=== PATIENT | female | born 1960 | race Two or more races ===

== ENCOUNTER 2021-04-06 17:30 | Inpatient (IN) | payer OTHER ==
[~2021-04-06] VITALS: Ht 147.3 cm; Wt 57.3 kg
[2021-04-06] MEDS ORDERED: SODIUM CHLORIDE 0.9% 500 ML IVB ONE (17:45)
[2021-04-06] MEDS ORDERED: PANTOPRAZOLE 40 MG/10 ML VIAL INJ IV ONE (17:45)
[2021-04-06] MEDS ORDERED: ONDANSETRON HCL 4 MG/2 ML VIAL IV ONE (17:45)
[2021-04-06] MEDS ORDERED: MORPHINE SULFATE 4 MG/ML SYR/VIAL IV ONE (17:45)
[2021-04-06 20:03] LABS: Basophils # (auto) 0 10 ^3/uL (0-0.2); Basophils % (auto) 0.3 % (0.0-2.0); Eosinophils # (auto) 0 10 ^3/uL (0-0.8); Eosinophils % (auto) 0.1 % (0.0-7.0); Hematocrit 40.1 % (36.0-46.0); Hemoglobin 13.6 g/dL (12.2-16.2); Lymphocytes # (auto) 0.6 10 ^3/uL (0.4-5.4); Lymphocytes % (auto) 6.2 % (10.0-50.0); Mean Corpuscular Hemoglobin 30.6 pg (28.0-32.0); Mean Corpuscular Volume 89.9 fL (80.0-100.0); Monocytes # (auto) 0.3 10 ^3/uL (0-1.3); Monocytes % (auto) 2.9 % (0.0-12.0); Neutrophils # (auto) 9.2 10 ^3/uL (1.6-8.6); Neutrophils % (auto) 90.5 % (37.0-80.0); Red Blood Cells 4.46 10^6/uL (4.0-5.20); Red Cell Distribution Width 13.1 % (11.8-14.3); White Blood Cell 10.2 10^3/uL (4.4-10.8)
[2021-04-06 20:14] LABS: Calcium 9.5 mg/dL (8.5-10.1); Potassium 3.7 mmol/L (3.5-5.1)
[2021-04-06 20:19] LABS: BUN/Creatinine Ratio 17.1; Bilirubin, Total 0.6 mg/dL (0.2-1.0); Total Protein 7.7 g/dL (6.4-8.2)
[2021-04-06] MEDS ORDERED: SOD CHL 0.45% 1,000 ML IV SCH (22:45)
[2021-04-06] MEDS ORDERED: MORPHINE SULFATE 4 MG/ML SYR/VIAL IV PRN (22:45)
[2021-04-06] MEDS ORDERED: ONDANSETRON HCL 4 MG/2 ML VIAL IV PRN (22:45)
[2021-04-07] MEDS ORDERED: MORPHINE SULFATE INJECTION 2 MG/ML SYRG IV PRN
[2021-04-07] MEDS ORDERED: NITROGLYCERIN 0.4 MG SL TAB SL PRN
[2021-04-07] MEDS: HYDROcodone-ACET 5/325MG TAB PO PRN ×2 (03:13→18:14)
[2021-04-07 06:02] LABS: Potassium 3.6 mmol/L (3.5-5.1)
[2021-04-07 06:12] LABS: Albumin 3.3 g/dL (3.4-5.0); BUN/Creatinine Ratio 17.9; Calcium 8.8 mg/dL (8.5-10.1)
[2021-04-07 06:13] LABS: Bilirubin, Total 0.7 mg/dL (0.2-1.0); Total Protein 6.5 g/dL (6.4-8.2)
[2021-04-07 06:32] LABS: Basophils # (auto) 0.1 10 ^3/uL (0-0.2); Basophils % (auto) 0.6 % (0.0-2.0); Eosinophils # (auto) 0 10 ^3/uL (0-0.8); Eosinophils % (auto) 0.5 % (0.0-7.0); Hematocrit 36.9 % (36.0-46.0); Hemoglobin 12.7 g/dL (12.2-16.2); Lymphocytes # (auto) 1.7 10 ^3/uL (0.4-5.4); Lymphocytes % (auto) 17.9 % (10.0-50.0); Mean Corpuscular Hemoglobin 31.1 pg (28.0-32.0); Mean Corpuscular Hgb Conc. 34.4 g/dL (32.0-36.0); Mean Corpuscular Volume 90.5 fL (80.0-100.0); Monocytes # (auto) 0.5 10 ^3/uL (0-1.3); Monocytes % (auto) 5.1 % (0.0-12.0); Neutrophils # (auto) 7.1 10 ^3/uL (1.6-8.6); Neutrophils % (auto) 75.9 % (37.0-80.0); Red Blood Cells 4.08 10^6/uL (4.0-5.20); Red Cell Distribution Width 13.4 % (11.8-14.3); White Blood Cell 9.4 10^3/uL (4.4-10.8)
[2021-04-07] MEDS: PANTOPRAZOLE 40 MG/10 ML VIAL INJ IV SCH (10:09)
[2021-04-07] MEDS: ACETAMINOPHEN 325 MG TAB PO PRN (10:12)
[2021-04-07] MEDS ORDERED: metroNIDAZOLE 500MG/100ML 100 ML IV ONE (11:00)
[2021-04-07] MEDS ORDERED: LACTULOSE 20Gm/30ML SOLN PO PRN (11:00)
[2021-04-07] MEDS ORDERED: cefTRIAXone 1GM/50ML D5W 50 ML IV ONE (11:00)
[2021-04-07] MEDS ORDERED: hydrALAZINE HCL 20 MG/ML VL IV PRN (11:15)
[2021-04-07] MEDS: SODIUM CHLORIDE 0.9% 1,000 ML IV SCH (12:37)
[2021-04-07] MEDS ORDERED: AMLO-489 PO (16:49)
[2021-04-07] MEDS ORDERED: ATOR10TA PO (16:49)
[2021-04-07] MEDS ORDERED: LOSA-69 PO (16:49)
[2021-04-07 17:00] VITALS: BP 131/68
[2021-04-07] MEDS: metroNIDAZOLE 500MG/100ML 100 ML IV SCH (18:31)
[2021-04-07 22:00] VITALS: BP_SYST 124; BP_SYST 148; BP_DIAS 66; BP_DIAS 72
[2021-04-08] MEDS: metroNIDAZOLE 500MG/100ML 100 ML IV SCH ×3 (03:00→18:51)
[2021-04-08] MEDS: SODIUM CHLORIDE 0.9% 1,000 ML IV SCH ×2 (03:40→20:20)
[2021-04-08 05:00] VITALS: BP 135/70
[2021-04-08 07:34] LABS: Albumin 3.3 g/dL (3.4-5.0); Calcium 8.5 mg/dL (8.5-10.1); Magnesium 2.1 mg/dL (1.6-2.6)
[2021-04-08 07:39] LABS: BUN/Creatinine Ratio 14.9; Bilirubin, Total 0.6 mg/dL (0.2-1.0); Phosphorus 2.9 mg/dL (2.5-4.90); Potassium 3.4 mmol/L (3.5-5.1); Total Protein 6.4 g/dL (6.4-8.2); Uric Acid 6.1 mg/dL (2.6-6.0)
[2021-04-08 07:40] LABS: Partial Thromboplastin Time 28.8 sec (23.6-33.0)
[2021-04-08 07:45] LABS: Basophils # (auto) 0.1 10 ^3/uL (0-0.2); Basophils % (auto) 0.8 % (0.0-2.0); Eosinophils # (auto) 0.1 10 ^3/uL (0-0.8); Eosinophils % (auto) 0.9 % (0.0-7.0); Hematocrit 36.1 % (36.0-46.0); Hemoglobin 12.6 g/dL (12.2-16.2); Lymphocytes # (auto) 1.3 10 ^3/uL (0.4-5.4); Mean Corpuscular Hemoglobin 31.7 pg (28.0-32.0); Mean Corpuscular Hgb Conc. 34.8 g/dL (32.0-36.0); Monocytes # (auto) 0.4 10 ^3/uL (0-1.3); Monocytes % (auto) 7.4 % (0.0-12.0); Neutrophils # (auto) 4.2 10 ^3/uL (1.6-8.6); Neutrophils % (auto) 69.9 % (37.0-80.0); Red Blood Cells 3.97 10^6/uL (4.0-5.20); Red Cell Distribution Width 13.1 % (11.8-14.3)
[2021-04-08] MEDS: cefTRIAXone 1GM/50ML D5W 50 ML IV SCH (08:34)
[2021-04-08] MEDS: PANTOPRAZOLE 40 MG/10 ML VIAL INJ IV SCH (08:35)
[2021-04-08] MEDS: ENOXAPARIN SOD 40 MG/0.4 ML SYRINGE SC SCH (08:35)
[2021-04-08 09:00] VITALS: BP 143/73
[2021-04-08] MEDS ORDERED: POTASSIUM CHL 20 Meq TABLET PO ONE (10:15)
[2021-04-08 17:00] VITALS: BP 144/82
[2021-04-08] MEDS: HYDROcodone-ACET 5/325MG TAB PO PRN (19:54)
[2021-04-08] MEDS: POTASSIUM CHL 20 Meq TABLET PO SCH (21:46)
[2021-04-08 22:00] VITALS: BP 110/66
[2021-04-09 00:20] LABS: Urine Bacteria NONE SEEN /hpf (None Seen); Urine Blood Negative /uL (Negative); Urine Mucus FEW (None Seen); Urine Specific Gravity 1.018 (1.001-1.035); Urine WBC 24 /hpf (0 - 5)
[2021-04-09] MEDS: metroNIDAZOLE 500MG/100ML 100 ML IV SCH ×2 (03:27→11:18)
[2021-04-09 05:00] VITALS: BP 145/79
[2021-04-09 07:53] LABS: Basophils # (auto) 0 10 ^3/uL (0-0.2); Basophils % (auto) 0.8 % (0.0-2.0); Eosinophils # (auto) 0.1 10 ^3/uL (0-0.8); Eosinophils % (auto) 1.3 % (0.0-7.0); Hematocrit 37.6 % (36.0-46.0); Hemoglobin 12.8 g/dL (12.2-16.2); Lymphocytes # (auto) 1.5 10 ^3/uL (0.4-5.4); Lymphocytes % (auto) 28.7 % (10.0-50.0); Mean Corpuscular Hemoglobin 30.9 pg (28.0-32.0); Mean Corpuscular Hgb Conc. 34.2 g/dL (32.0-36.0); Mean Corpuscular Volume 90.4 fL (80.0-100.0); Monocytes # (auto) 0.4 10 ^3/uL (0-1.3); Monocytes % (auto) 8.5 % (0.0-12.0); Neutrophils # (auto) 3.1 10 ^3/uL (1.6-8.6); Neutrophils % (auto) 60.7 % (37.0-80.0); Nucleated Red Blood Cells % 0.1 %; Red Blood Cells 4.16 10^6/uL (4.0-5.20); White Blood Cell 5.2 10^3/uL (4.4-10.8)
[2021-04-09 08:05] LABS: Albumin 3.3 g/dL (3.4-5.0); Calcium 8.8 mg/dL (8.5-10.1); Magnesium 2.4 mg/dL (1.6-2.6); Potassium 3.7 mmol/L (3.5-5.1)
[2021-04-09 08:07] LABS: BUN/Creatinine Ratio 11.3
[2021-04-09 08:10] LABS: Bilirubin, Total 0.6 mg/dL (0.2-1.0); Phosphorus 2.7 mg/dL (2.5-4.90); Total Protein 6.7 g/dL (6.4-8.2)
[2021-04-09 08:17] LABS: INR 0.98 (0.9-1.15); Partial Thromboplastin Time 27.7 sec (23.6-33.0)
[2021-04-09 09:00] VITALS: BP 131/76
[2021-04-09] MEDS: cefTRIAXone 1GM/50ML D5W 50 ML IV SCH (09:05)
[2021-04-09] MEDS: PANTOPRAZOLE 40 MG/10 ML VIAL INJ IV SCH (09:05)
[2021-04-09] MEDS: ENOXAPARIN SOD 40 MG/0.4 ML SYRINGE SC SCH (09:06)
[2021-04-09] MEDS: POTASSIUM CHL 20 Meq TABLET PO SCH ×2 (09:06→22:11)
[2021-04-09 13:00] VITALS: BP 131/76
[2021-04-09] MEDS: SODIUM CHLORIDE 0.9% 1,000 ML IV SCH (13:24)
[2021-04-09] MEDS: ACETAMINOPHEN 325 MG TAB PO PRN (15:38)
[2021-04-09 17:00] VITALS: BP 142/79
[2021-04-09 22:00] VITALS: BP 126/71
[2021-04-10 06:00] VITALS: BP 116/72
[2021-04-10 08:00] VITALS: BP 152/75
[2021-04-10 08:33] VITALS: BP 152/75
[2021-04-10] MEDS: cefTRIAXone 1GM/50ML D5W 50 ML IV SCH (08:54)
[2021-04-10] MEDS: POTASSIUM CHL 20 Meq TABLET PO SCH (08:54)
[2021-04-10] MEDS: ENOXAPARIN SOD 40 MG/0.4 ML SYRINGE SC SCH (08:55)
[2021-04-10] MEDS: PANTOPRAZOLE 40 MG/10 ML VIAL INJ IV SCH (08:56)
[2021-04-10] MEDS ORDERED: CHOLECALCIFEROL (VITD3) 2,000 UNIT CAP/TAB PO SCH (10:00)
[2021-04-10 13:00] VITALS: BP 140/84
[2021-04-10] MEDS ORDERED: LEVO-28 PO (16:51)
== END 2021-04-10 18:15 | disposition home or self-care (01) | DRG 690 ==
LOC: ER 17:30 → OVERFLOW 23:46 → WEST WING 04-07 14:44
PROVIDERS: ADMIT Nurse Practitioner Family; ATTEND Internal Medicine
DX: N13.6 Pyonephrosis (principal); I16.9 Hypertensive crisis, unspecified; N20.1 Calculus of ureter; R73.9 Hyperglycemia, unspecified; E88.09 Other disorders of plasma-protein metabolism, not elsewhere classified; E55.9 Vitamin D deficiency, unspecified; E78.5 Hyperlipidemia, unspecified; Z20.822 Contact with and (suspected) exposure to COVID-19; Z82.49 Family history of ischemic heart disease and other diseases of the circulatory system; Z83.3 Family history of diabetes mellitus; Z86.19 Personal history of other infectious and parasitic diseases
CPT/HCPCS: 36415; 73502; 74176; 76705; 76830; 76856; 80053; 81001; 82150; 82306; 83036; 83690; 83735; 83880; 84100; 84443; 84550; 85025; 85610; 85730; 87040; 87086; 87426; 93005; 96361; 96374; 96375; C9113; G0378; J0696; J2405; J3490